=== PATIENT | male | born 1995 | race Caucasian/White ===

== ENCOUNTER 2021-01-15 19:27 | Emergency (ER) | payer OTHER ==
[~2021-01-15] VITALS: Ht 195.6 cm; Wt 90.9 kg
[2021-01-15 19:31] VITALS: TEMP 98.2
[2021-01-15 23:20] VITALS: BP 120/61; PULSE 80
== END 2021-01-15 23:30 | disposition home or self-care (01) ==
LOC: COL.ER 19:27
DX: T18.128A Food in esophagus causing other injury, initial encounter (principal); W45.8XXA Other foreign body or object entering through skin, initial encounter
CPT/HCPCS: J1610; J3360; J7040